=== PATIENT | female | born 1960 | race Caucasian/White ===

== ENCOUNTER 2019-02-08 11:33 | Emergency (ER) | payer MEDICAID ==
[~2019-02-08] VITALS: Ht 160 cm; Wt 46.7 kg
--- NOTE | 2019-02-08 11:40 | NUR ---
PT WAS EVALUATED BY DR ROB. PT IS IN ROOM #1B.
[2019-02-08] MEDS ORDERED: ONDANSETRON ODT 4 MG TAB.RAPDIS SL ONE (13:45)
[2019-02-08] MEDS ORDERED: MECLIZINE HCL 25 MG TABLET PO ONE (13:45)
[2019-02-08] MEDS ORDERED: ONDANSETRON ODT 4 MG TAB.RAPDIS ONE (13:48)
[2019-02-08] MEDS ORDERED: MECLIZINE HCL 25 MG TABLET ONE (13:48)
--- NOTE | 2019-02-08 14:08 | NUR ---
PT WAS RE-EVALUATED BY DR ROB. PT WAS D/C'D TO HOME. D/C INSTRUCTIONS GIVEN TO THE PT BY DR ROB.
[2019-02-08 14:13] VITALS: BP 124/67
== END 2019-02-08 14:18 | disposition home or self-care (01) ==
LOC: ER 11:33
DX: S32.592A Other specified fracture of left pubis, initial encounter for closed fracture (principal); W05.1XXA Fall from non-moving nonmotorized scooter, initial encounter; Y93.89 Activity, other specified; Y92.89 Other specified places as the place of occurrence of the external cause; Y99.8 Other external cause status
CPT/HCPCS: 72192; 73502; A4663; J8597; Q0162